=== PATIENT | male | born 1960 | race Caucasian/White ===

== ENCOUNTER 2016-08-30 22:22 | Emergency (ER) | payer OTHER ==
[~2016-08-30] VITALS: Ht 162.6 cm; Wt 102.8 kg
[2016-08-30] MEDS ORDERED: ALLERGY EYE DRO10 ML BOTH EYES (22:50)
[2016-08-30] MEDS ORDERED: LO-DOSE ASPIRIN81 M2 PO (22:51)
[2016-08-30] MEDS ORDERED: CLARITIN10 M3 PO (22:51)
[2016-08-30] MEDS ORDERED: TENORMIN100 MG PO (22:51)
[2016-08-30] MEDS ORDERED: DESVENLAFAXINE100 M3 PO (22:51)
[2016-08-30] MEDS ORDERED: HYDROCODON-ACE1 EA12 PO (22:51)
[2016-08-30] MEDS ORDERED: INTUNIV4 MG PO (22:52)
[2016-08-30] MEDS ORDERED: LOSARTAN-HCTZ1 EAC2 PO (22:52)
[2016-08-30] MEDS ORDERED: MOTRIN400 MG PO (22:52)
[2016-08-30] MEDS ORDERED: CARDURA4 MG PO (22:52)
[2016-08-31 00:13] LABS: EOSINOPHIL (%) 2.5 % (0-5); EOSINOPHIL COUNT 0.2 K/uL (0-0.3); HEMATOCRIT 44.9 % (38.0-50.0); IMMATURE GRANULOCYTE (%) 0.1 % (0.0-0.7); INSTRUMENT ABS NEUTROPHIL CT 5.3 K/uL; LYMPHOCYTE COUNT 0.7 K/uL (1.0-2.8); MCH 28.3 PG (29.0-34.0); MCHC 34.1 G/DL (30.0-36.0); MCV 83.1 FL (86-99); MONOCYTE (%) 13.3 % (3-12); NEUTROPHIL (%) 73.7 % (45-76); NEUTROPHIL COUNT 5.3 K/uL (1.8-6.4); PLATELET COUNT 185 K/uL (156-360); RBC DIS.WIDTH-CV 12.8 % (11.8-14.6); RBC DIS.WIDTH-SD 38.5 % (39-53); WHITE BLOOD COUNT 7.2 K/uL (4.1-10.2)
[2016-08-31 00:21] LABS: CHLORIDE 99 mEq/L (99-109); POTASSIUM 2.9 mEq/L (3.7-5.4); SODIUM 137 mEq/L (136-147)
[2016-08-31 00:23] LABS: GLUCOSE 122 mg/dL (70-99)
[2016-08-31 00:24] LABS: ANION GAP 13 MEQ/L (2-14)
[2016-08-31 00:25] LABS: TOTAL BILIRUBIN 6.2 mg/dL (0.0-1.0)
[2016-08-31 00:27] LABS: ALKALINE PHOSPHATASE 188 IU/L (3-129); GFR ESTIMATE (CALCULATED) > 59 mL/min/
[2016-08-31 00:28] LABS: UREA NITROGEN (BUN) 13 mg/dL (9-23)
[2016-08-31 00:30] LABS: LIPASE 20 U/L (1.0-51.0)
[2016-08-31 00:35] LABS: ADD MIUA? YES; BILIRUBIN NEGATIVE; BLOOD NEGATIVE; COLOR AMBER ((YELLOW)); GLUCOSE (STRIP) NEGATIVE; KETONES NEGATIVE; LEUKOCYTES NEGATIVE; NITRITE NEGATIVE; PROTEIN (STRIP) NEGATIVE; SPECIFIC GRAVITY 1.011 (1.000-1.030); UROBILINOGEN 0.2 MG/DL (0.2-1.0)
[2016-08-31 00:51] LABS: BACTERIA 1+ /HPF; EPITHELIAL CELLS RARE /HPF; MUCUS TRACE /LPF; RED BLOOD CELLS 0-5 /HPF (0-5); WHITE BLOOD CELLS 0-5 /HPF (0-5)
[2016-08-31 07:14] VITALS: BP 161/106
== END 2016-08-31 07:18 | disposition short-term general hospital (02) ==
LOC: EME 22:22
PROVIDERS: Physician Assistant
DX: K80.51 Calculus of bile duct without cholangitis or cholecystitis with obstruction (principal); R74.8 Abnormal levels of other serum enzymes; N20.0 Calculus of kidney; E87.6 Hypokalemia; I10 Essential (primary) hypertension; Z87.442 Personal history of urinary calculi
CPT/HCPCS: 74177; 80053; 81003; 83690; 85025; 87086; 93005; 99281; 99285; J1885; J3010; J3480; J7030; J7120